=== PATIENT | female | born 1980 | race African-American/Black ===

== ENCOUNTER 2022-01-15 14:57 | Emergency (ER) | payer OTHER ==
[~2022-01-15] VITALS: Ht 157.5 cm; Wt 74.4 kg
[~2022-01-15 14:57] MED LIST: ALBU90AE13 INH; BENICAR20 MG PO; BUSPIRONE30 MG PO; DICYCLOMINE HYD10 MG PO; DICYCLOMINE HYD20 MG PO; GABA300C2 PO; GRALISE300 MG PO; METF500T PO; METFTAB PO; METOCLOPRAMIDE H5 MG PO; ONDA4TAB3 PO; PANTOPRAZOLE 40MG TA PO; REMERON30 MG PO; VALSARTAN160 MG PO; VITAMIN D3 1.251 CAP PO; [UNRECOGNIZED DRUG - CODE] PO
[2022-01-15 15:00] VITALS: TEMP 97.6
[2022-01-15 16:11] LABS: PLATELET COUNT 418 K/uL (152-353)
[2022-01-15 16:31] LABS: POTASSIUM 3.1 mmol/L (3.6-5.2)
[2022-01-15] MEDS ORDERED: LEVOFLOXACIN500 MG PO ×2 (20:44→20:49)
[2022-01-15] MEDS ORDERED: ONDA4TAB3 PO (20:44)
[2022-01-15 20:55] VITALS: BP 135/87
== END 2022-01-15 20:55 | disposition home or self-care (01) ==
LOC: ED 14:57
PROVIDERS: Emergency Medicine
DX: R10.84 Generalized abdominal pain (principal); D72.828 Other elevated white blood cell count
CPT/HCPCS: 80053; 80307; 81000; 81025; 83690; 85027; 96360; 96365; 96372; 96375; 96376; 99284; J1200; J1885; J1956; J2270; J2405; J2550; Q9963

== ENCOUNTER 2022-01-21 06:15 | Emergency (ER) | payer OTHER ==
[~2022-01-21] VITALS: Ht 157.5 cm; Wt 72.6 kg
[~2022-01-21 06:15] MED LIST changes: +LEVOFLOXACIN500 MG PO
[2022-01-21 06:35] VITALS: TEMP 98.6
[2022-01-21 07:21] LABS: PLATELET COUNT 436 K/uL (152-353)
[2022-01-21 07:28] LABS: POTASSIUM 3.1 mmol/L (3.6-5.2)
[2022-01-21 09:08] VITALS: BP 120/70
== END 2022-01-21 09:15 | disposition home or self-care (01) ==
LOC: ED 06:15
PROVIDERS: Emergency Medicine
DX: F10.10 Alcohol abuse, uncomplicated (principal); Y90.0 Blood alcohol level of less than 20 mg/100 ml; K29.60 Other gastritis without bleeding; E87.6 Hypokalemia
CPT/HCPCS: 36415; 80053; 80307; 80320; 81000; 82150; 83690; 85027; 96365; 96368; 96375; 99284; J2405; J3411; J3475; J3490

== ENCOUNTER 2022-01-31 03:16 | Emergency (ER) | payer OTHER ==
[~2022-01-31] VITALS: Ht 157.5 cm; Wt 72.6 kg
[2022-01-31 04:35] VITALS: BP 119/73; TEMP 98.7
== END 2022-01-31 04:35 | disposition home or self-care (01) ==
LOC: ED 03:16
DX: J06.9 Acute upper respiratory infection, unspecified (principal); J45.998 Other asthma; R11.2 Nausea with vomiting, unspecified; F17.210 Nicotine dependence, cigarettes, uncomplicated; Z20.822 Contact with and (suspected) exposure to COVID-19
CPT/HCPCS: 87502; 87635; 87651; 96372; 99283; J0696; J2405; J2930; U0003

== ENCOUNTER 2022-04-28 10:20 | Inpatient (IN) | payer OTHER ==
[~2022-04-28] VITALS: Ht 157.5 cm; Wt 70.8 kg
[2022-04-28] VITALS (10 sets, daily range): BP systolic 98–1232; BP diastolic 52–80; TEMP 98–99; Ht 157.5 cm; Wt 70.8 kg
[2022-04-28 10:48] LABS: PLATELET COUNT 468 K/uL (152-353)
[2022-04-28 11:29] LABS: POTASSIUM 2.9 mmol/L (3.6-5.2)
[2022-04-29 04:00] VITALS: BP 107/60; TEMP 98.4
[2022-04-29 06:39] LABS: PLATELET COUNT 412 K/uL (152-353)
[2022-04-29 07:46] LABS: POTASSIUM 2.9 mmol/L (3.6-5.2)
[2022-04-29 12:00] VITALS: BP 117/68; TEMP 98
[2022-04-29 16:00] VITALS: BP 118/67; TEMP 98.5
[2022-04-29 20:00] VITALS: BP 135/89; TEMP 98
[2022-04-30 00:11] VITALS: BP 142/70; TEMP 98.2
[2022-04-30 04:00] VITALS: BP 146/63; TEMP 98.2
[2022-04-30 05:19] LABS: PLATELET COUNT 376 K/uL (152-353)
[2022-04-30 05:44] LABS: POTASSIUM 3.7 mmol/L (3.6-5.2)
[2022-04-30 08:00] VITALS: BP 151/86; TEMP 97.6
== END 2022-04-30 11:40 | disposition left against medical advice (07) | DRG 440 ==
LOC: ED 10:20 → MED/SURG 14:00
PROVIDERS: Internal Medicine; ADMIT Hospitalist; ATTEND Internal Medicine
DX: K85.20 Alcohol induced acute pancreatitis without necrosis or infection (principal); E11.65 Type 2 diabetes mellitus with hyperglycemia; I10 Essential (primary) hypertension; K21.9 Gastro-esophageal reflux disease without esophagitis; E87.6 Hypokalemia; E83.42 Hypomagnesemia; F14.10 Cocaine abuse, uncomplicated; F12.10 Cannabis abuse, uncomplicated
CPT/HCPCS: 36415; 80048; 80053; 80307; 80320; 81002; 81025; 82550; 83690; 83735; 84484; 85027; 87635; 93005; 94760; 96374; 96375; 99284; J1170; J1200; J1650; J2405; J3475; J3490; Q9963; U0003

== ENCOUNTER 2022-06-10 19:41 | Emergency (ER) | payer OTHER ==
[~2022-06-10] VITALS: Ht 157.5 cm; Wt 65.8 kg
[2022-06-10 20:00] VITALS: TEMP 98.6
[2022-06-10 21:30] LABS: PLATELET COUNT 456 K/uL (152-353)
[2022-06-10 21:45] LABS: POTASSIUM 3.8 mmol/L (3.6-5.2)
[2022-06-11 09:20] VITALS: BP 142/65
== END 2022-06-11 09:20 | disposition short-term general hospital (02) ==
LOC: ED 19:41
PROVIDERS: Emergency Medicine Emergency Medical Services
DX: K85.80 Other acute pancreatitis without necrosis or infection (principal); K86.3 Pseudocyst of pancreas
CPT/HCPCS: 36415; 80053; 80307; 81000; 81025; 82150; 83690; 84484; 85027; 87040; 93005; 96360; 96361; 96365; 96375; 96376; 99284; J1170; J1200; J2270; J2405; J2543

== ENCOUNTER 2022-08-01 15:11 | Emergency (ER) | payer OTHER ==
[~2022-08-01] VITALS: Ht 157.5 cm; Wt 61.2 kg
[2022-08-01 16:27] LABS: PLATELET COUNT 265 K/uL (152-353)
[2022-08-01 16:36] LABS: PARTIAL THROMBOPLASTIN TIME 26.1 SECONDS (24.5-33.6)
[2022-08-01 20:33] VITALS: BP 112/70; TEMP 98
== END 2022-08-01 20:33 | disposition home or self-care (01) ==
LOC: ED 15:11
PROVIDERS: Emergency Medicine
DX: K86.1 Other chronic pancreatitis (principal)
CPT/HCPCS: 36415; 80053; 80307; 81002; 81025; 82150; 83690; 85027; 85610; 85730; 96374; 96375; 96376; 99284; J2175; J2405

== ENCOUNTER 2022-09-22 09:26 | Outpatient (CLI) | payer OTHER | END 2022-09-22 18:58 | disposition home or self-care (01) | LOC: CT 09:26 | PROVIDERS: ATTEND Internal Medicine Gastroenterology | DX: K86.0 Alcohol-induced chronic pancreatitis (principal); K86.89 Other specified diseases of pancreas | CPT/HCPCS: 36415; 82565; 84520; Q9963 ==

== ENCOUNTER 2022-09-22 11:25 | Emergency (ER) | payer OTHER ==
[~2022-09-22] VITALS: Ht 157.5 cm; Wt 63.5 kg
[2022-09-22 11:25] VITALS: TEMP 98.7
[2022-09-22 11:51] LABS: PLATELET COUNT 364 K/uL (152-353)
[2022-09-22 13:48] VITALS: BP 133/82
== END 2022-09-22 13:48 | disposition home or self-care (01) ==
LOC: ED 11:25
PROVIDERS: Emergency Medicine
DX: K86.1 Other chronic pancreatitis (principal); E87.6 Hypokalemia; F41.8 Other specified anxiety disorders
CPT/HCPCS: 80053; 80307; 85027; 96365; 96374; 96375; 99284; J1170; J1200; J2405; J2920